=== PATIENT | male | born 1955 | race Caucasian/White ===

== ENCOUNTER 2019-10-22 14:19 | Inpatient (IN) | payer OTHER ==
[2019-10-22] MEDS ORDERED: HYDROmorphone 0.5 MG/0.5 ML Syringe IVPUSH ONE ×4 (14:43→16:13)
[2019-10-22] MEDS ORDERED: Sodium Chloride 0.9% 10 ML Syringe FLUSH PRN (14:43)
--- NOTE | 2019-10-22 14:52 | EDM.PDOC ---
ED HPI GENERAL MEDICAL PROBLEM - General Chief Complaint: Abdominal Pain Stated Complaint: ABD PAIN Time Seen by Provider: 10/22/19 14:40 Source of Information: Reports: Patient History Limitations: Reports: Other (no records immediately available regarding his recent clinic visit) - History of Present Illness INITIAL COMMENTS - FREE TEXT/NARRATIVE: 64 yo male presents with low abdominal pain. Says he was seen on Saturday in the clinic for this and had a CT scan that showed diverticulitis. He was placed on oral Augmentin and no follow up appt was scheduled. He has since had increasing abdominal pain and loose stools. He says he had a fever on Saturday, but not since. No nausea or vomiting. Sx's only slightly worse with coughing. Onset: Gradual Onset Date: 10/19/19 Duration: Day(s):, Getting Worse Location: Reports: Abdomen (low) Quality: Reports: Ache Severity: Severe Improves with: Reports: None Worsens with: Reports: Other (time) Context: Reports: Other (see HPI) Associated Symptoms: Denies: Chest Pain, Cough, Fever/Chills, Nausea/Vomiting, Rash, Seizure, Shortness of Breath, Syncope Treatments SIZE STAMPER: Reports: Other (see below) (Augmentin) Abdomen Pain Score (Numeric/FACES): 10 - Related Data Allergies Allergy/AdvReac Type Severity Reaction Status Date / Time No Known Allergies Allergy Verified 10/22/19 14:54 Home Meds: Home Meds Amoxicillin/Clavulanate K [Augmentin 875-125 MG] 1 cap PO BID 10/22/19 [History] Ofloxacin [Ocuflox 0.3% Oph Soln] 2 drop TOP TID 10/22/19 [History] Omeprazole Magnesium [Prilosec Otc] 20 mg PO DAILY 10/22/19 [History] ED ROS GENERAL - Review of Systems Review Of Systems: See Below Constitutional: Reports: No Symptoms HEENT: Reports: No Symptoms Respiratory: Reports: No Symptoms Cardiovascular: Reports: No Symptoms GI/Abdominal: Reports: Abdominal Pain (lower), Diarrhea. Denies: Anorexia, Black Stool, Bloody Stool, Constipation, Distension, Hematemesis, Hematochezia, Melena, Nausea, Vomiting : Reports: No Symptoms Musculoskeletal: Reports: No Symptoms Skin: Reports: Other (slightly sweaty at times from the pain) Neurological: Reports: No Symptoms ED EXAM, GI/ABD - Physical Exam Exam: See Below Exam Limited By: No Limitations General Appearance: Alert, WD/WN, No Apparent Distress Eyes: Bilateral: Normal Appearance Ears: Normal External Exam, Normal Canal, Hearing Grossly Normal Nose: Normal Inspection, No Blood Throat/Mouth: Normal Inspection, Normal Oropharynx, Normal Voice, No Airway Compromise Head: Atraumatic, Normocephalic Neck: Normal Inspection Respiratory/Chest: No Respiratory Distress, Lungs Clear, Normal Breath Sounds, No Accessory Muscle Use Cardiovascular: Regular Rate, Rhythm, No Edema GI/Abdominal Exam: Normal Bowel Sounds, Soft, No Distention, Tender (entire lower abdomen). No: Distended, Hernia Back Exam: Normal Inspection. No: CVA Tenderness (R), CVA Tenderness (L) Extremities: Normal Inspection, Normal Range of Motion, Non-Tender, No Pedal Edema Neurological: Alert, Oriented, CN II-XII Intact, Normal Cognition, No Motor/ Sensory Deficits Psychiatric: Normal Affect, Normal Mood Skin Exam: Warm, Dry, Intact, Normal Color, No Rash Course - Vital Signs Text/Narrative:: bladder scan [address] Kirby wesley @ 1646h Last Recorded V/S: Last Vital Signs Temp 36.1 C 10/22/19 14:45 Pulse 114 H 10/22/19 17:08 Resp 19 10/22/19 17:08 BP 171/94 H 10/22/19 17:08 Pulse Ox 95 10/22/19 17:08 - Orders/Labs/Meds Orders: Active Orders 24 hr Category Date Time Status Bladder Scan [RC] ASDIRECTED Care 10/22/19 16:03 Active UA W/MICROSCOPIC [URIN] Stat Lab 10/22/19 14:25 Ordered Aztreonam [Azactam] 1 gm Med 10/22/19 17:32 Ordered Sodium Chloride 0.9% [Normal Saline] 50 ml IV ONETIME NS + KCl 20mEq/L [Normal Saline with 20 mEq KCl] 1,000 Med 10/22/19 16:15 Active ml IV ASDIRECTED Piperacillin/Tazobactam [Zosyn] 4.5 gm Med 10/22/19 16:53 Active Sodium Chloride 0.9% [Normal Saline] 100 ml IV ONETIME Sodium Chloride 0.9% [Saline Flush] Med 10/22/19 14:26 Active 10 ml FLUSH ASDIRECTED PRN Sodium Chloride 0.9% [Saline Flush] Med 10/22/19 14:43 Active 10 ml FLUSH ASDIRECTED PRN Saline Lock Insert [OM.PC] Routine Oth 10/22/19 14:26 Ordered Saline Lock Insert [OM.PC] Routine Oth 10/22/19 14:43 Ordered Medication Orders Potassium Chloride/Sodium Chloride (Normal Saline With 20 Meq Kcl) 1,000 mls @ 150 mls/hr IV ASDIRECTED DELMER Last Admin: 10/22/19 16:24 Dose: 150 mls/hr Piperacillin Sod/Tazobactam (Sod 4.5 gm/ Sodium Chloride) 100 mls @ 100 mls/hr IV ONETIME ONE Stop: 10/22/19 17:52 Last Admin: 10/22/19 17:06 Dose: 100 mls/hr Sodium Chloride (Saline Flush) 10 ml FLUSH ASDIRECTED PRN PRN Reason: Keep Vein Open Last Admin: 10/22/19 15:35 Dose: 10 ml Admin: 10/22/19 14:59 Dose: 10 ml Sodium Chloride (Saline Flush) 10 ml FLUSH ASDIRECTED PRN PRN Reason: Keep Vein Open Last Admin: 10/22/19 17:09 Dose: 10 ml Labs: Laboratory Tests 10/22/19 10/22/19 10/22/19 Range/Units 14:30 14:30 16:13 WBC 9.2 (4.5-11.0) K/uL RBC 4.65 (4.30-5.90) M/uL Hgb 14.2 (12.0-15.0) g/dL Hct 43.1 (40.0-54.0) % MCV 93 (80-98) fL MCH 31 (27-31) pg MCHC 33 (32-36) % Plt Count 188 (150-400) K/uL Sodium 137 L (140-148) mmol/L Potassium 3.5 L (3.6-5.2) mmol/L Chloride 100 (100-108) mmol/L Carbon Dioxide 24 (21-32) mmol/L Anion Gap 16.5 H (5.0-14.0) mmol/L BUN 13 (7-18) mg/dL Creatinine 1.2 (0.8-1.3) mg/dL Est Cr Clr Drug Dosing TNP Estimated GFR (MDRD) > 60 (>60) Glucose 119 H (74-106) mg/dL Calcium 8.8 (8.5-10.1) mg/dL Lipase 149 (73-393) U/L Meds: Medications Generic Name Dose Route Start Last Admin Trade Name Lory PRN Reason Stop Dose Admin Potassium Chloride/Sodium Chloride 1,000 mls @ 150 mls/hr 10/22/19 16:15 16:24 Normal Saline With 20 Meq Kcl IV 150 mls/hr ASDIRECTED DELMER Administration Piperacillin Sod/Tazobactam 100 mls @ 100 mls/hr 10/22/19 16:53 10/22/19 17: 06 Sod 4.5 gm/ Sodium Chloride IV 10/22/19 17:52 100 mls/hr ONETIME ONE Administration Sodium Chloride 10 ml 10/22/19 14:26 10/22/19 15:35 Saline Flush FLUSH 10 ml ASDIRECTED PRN Administration Keep Vein Open Sodium Chloride 10 ml 10/22/19 14:43 10/22/19 17:09 Saline Flush FLUSH 10 ml ASDIRECTED PRN Administration Keep Vein Open Discontinued Medications Generic Name Dose Route Start Last Admin Trade Name Lory PRN Reason Stop Dose Admin Hydromorphone HCl 0.5 mg 10/22/19 14:43 10/22/19 14:59 Dilaudid IVPUSH 10/22/19 14:44 0.5 mg ONETIME ONE Administration Hydromorphone HCl 0.5 mg 10/22/19 15:05 10/22/19 15:17 Dilaudid IVPUSH 10/22/19 15:06 0.5 mg ONETIME ONE Administration Hydromorphone HCl 0.5 mg 10/22/19 15:44 10/22/19 15:59 Dilaudid IVPUSH 10/22/19 15:45 0.5 mg ONETIME ONE Administration Hydromorphone HCl 0.5 mg 10/22/19 16:13 10/22/19 16:22 Dilaudid IVPUSH 10/22/19 16:14 0.5 mg ONETIME ONE Administration Sodium Chloride 87 mls @ 3 mls/sec 10/22/19 15:14 10/22/19 15:34 Normal Saline IV 10/22/19 15:15 3 mls/sec ASDIRECTED ONE Administration Iopamidol 150 ml 10/22/19 15:13 10/22/19 15:34 Isovue-300 (61%) IV 150 ml . DIRECTED PRN Administration RADIOLOGY EXAM - Radiology Interpretation Free Text/Narrative:: CT abd/pelvis with IV contrast-diverticulitis with perforation. CT Results Date: 10/22/19 CT Results Time: 16:44 Departure - Departure Time of Disposition: 17:50 Disposition: Admitted As Inpatient 68 Condition: Serious Clinical Impression: Perforation of sigmoid colon due to diverticulitis - Discharge Information *PRESCRIPTION DRUG MONITORING PROGRAM REVIEWED*: No *COPY OF PRESCRIPTION DRUG MONITORING REPORT IN PATIENT WILLIAMS: No Referrals: Mikey Giron MD [Primary Care Provider] - Forms: ED Department Discharge Sepsis Event Note - Focused Exam Vital Signs: Vital Signs Temp Pulse Resp BP Pulse Ox 10/22/19 17:08 114 H 19 171/94 H 95 10/22/19 16:28 97 23 H 168/87 H 92 L 10/22/19 15:50 93 22 H 151/81 H 95 10/22/19 14:45 36.1 C 80 18 151/85 H 97 Date Exam was Performed: 10/22/19 Time Exam was Performed: 17:32 - My Orders Last 24 Hours: My Active Orders 10/22/19 14:25 UA W/MICROSCOPIC [URIN] Stat 10/22/19 14:26 Sodium Chloride 0.9% [Saline Flush] 10 ml FLUSH ASDIRECTED PRN Saline Lock Insert [OM.PC] Routine 10/22/19 14:43 Sodium Chloride 0.9% [Saline Flush] 10 ml FLUSH ASDIRECTED PRN Saline Lock Insert [OM.PC] Routine 10/22/19 16:03 Bladder Scan [RC] ASDIRECTED 10/22/19 16:15 NS + KCl 20mEq/L [Normal Saline with 20 mEq KCl] 1,000 ml IV ASDIRECTED 10/22/19 16:53 Piperacillin/Tazobactam [Zosyn] 4.5 gm Sodium Chloride 0.9% [Normal Saline] 100 ml IV ONETIME 10/22/19 17:32 Aztreonam [Azactam] 1 gm Sodium Chloride 0.9% [Normal Saline] 50 ml IV ONETIME - Assessment/Plan Last 24 Hours: My Active Orders 10/22/19 14:25 UA W/MICROSCOPIC [URIN] Stat 10/22/19 14:26 Sodium Chloride 0.9% [Saline Flush] 10 ml FLUSH ASDIRECTED PRN Saline Lock Insert [OM.PC] Routine 10/22/19 14:43 Sodium Chloride 0.9% [Saline Flush] 10 ml FLUSH ASDIRECTED PRN Saline Lock Insert [OM.PC] Routine 10/22/19 16:03 Bladder Scan [RC] ASDIRECTED 10/22/19 16:15 NS + KCl 20mEq/L [Normal Saline with 20 mEq KCl] 1,000 ml IV ASDIRECTED 10/22/19 16:53 Piperacillin/Tazobactam [Zosyn] 4.5 gm Sodium Chloride 0.9% [Normal Saline] 100 ml IV ONETIME 10/22/19 17:32 Aztreonam [Azactam] 1 gm Sodium Chloride 0.9% [Normal Saline] 50 ml IV ONETIME
[2019-10-22] MEDS: Sodium Chloride 0.9% 10 ML Syringe FLUSH PRN ×2 (14:59→15:35)
[2019-10-22] MEDS ORDERED: Iopamidol 612 MG/ML 150 ML Bottle IV PRN (15:13)
[2019-10-22] MEDS ORDERED: Sodium Chloride 0.9% 87 ML IV ONE (15:14)
[2019-10-22] MEDS ORDERED: NS + KCl 20mEq/L 1,000 ML IV SCH (16:15)
--- NOTE | 2019-10-22 16:50 | CRLCT ---
Indication: Diverticulitis, increased abdominal pain Technique: Contrast enhanced axial CT imaging through the abdomen and pelvis. 150 mL Isovue 300 contrast agent was administered intravenously. Sagittal and coronal reconstructions are provided. Comparison: CT abdomen pelvis with contrast 10/20/2019 Findings: Again demonstrated is wall thickening and surrounding inflammatory stranding involving the sigmoid colon with underlying diverticulosis, consistent with the diagnosis of acute diverticulitis. There is interval development of a few foci of pericolonic extraluminal air as well as small amount of pneumoperitoneum, consistent with colonic perforation. There is no organized abdominal or pelvic fluid collection to suggest abscess formation. There is new wall thickening of the terminal ileum and appendix, which are favored to be secondary to worsening inflammatory changes from adjacent diverticulitis. Remainder of the bowel is unremarkable. A small amount free fluid is noted in the lower abdomen pelvis. There is no significant abnormality of the liver, gallbladder, spleen, pancreas, adrenal glands, and kidneys. A small renal cortical cyst is noted on the left. The portal vein and IVC are patent. There is normal caliber of the abdominal aorta. The visualized osseous structures are unremarkable. The included lung bases are clear. Impression: 1. Persistent findings of acute diverticulitis with evidence of an interval colonic perforation. No evidence of abdominal or pelvic abscess. Findings were communicated to Dr. Baron at 4:42 p.m. 2. New wall thickening of the terminal ileum and appendix, favored to be secondary to worsening adjacent inflammatory changes from acute diverticulitis. Please note that all CT scans at this facility use dose modulation, iterative reconstruction, and/or weight-based dosing when appropriate to reduce radiation dose to as low as reasonably achievable. Dictated by Harjit Dillard MD @ Oct 22 2019 4:47PM Signed by Dr. Harjit Dillard @ Oct 22 2019 4:47PM
[2019-10-22] MEDS ORDERED: Piperacillin/Tazobactam 4.5 GM in Sodium Chloride 0.9% 100 ML IV ONE (16:53)
[2019-10-22] MEDS ORDERED: HYDROmorphone 1 MG/ML Syringe IVPUSH ONE (17:47)
[2019-10-22] MEDS ORDERED: Acetaminophen 650 MG Supp RECTAL ONE (18:05)
[2019-10-22] MEDS ORDERED: Bupivacaine 0.5% 50 ML MDV ONE (18:07)
[2019-10-22] MEDS ORDERED: Lidocaine 1% with EPINEPHrine 1:100,000 50 ML MDV ONE (18:07)
[2019-10-22] MEDS ORDERED: Meropenem 500 MG SDV ONE ×4 (18:07→19:42)
[2019-10-22] MEDS ORDERED: Propofol 200 MG/20 ML SDV ONE (18:14)
[2019-10-22] MEDS ORDERED: Glycopyrrolate 0.2 MG/ML 5 ML MDV ONE (18:14)
[2019-10-22] MEDS ORDERED: Succinylcholine 200 MG/10 ML MDV ONE (18:14)
[2019-10-22] MEDS ORDERED: Dexamethasone 4 MG/ML SDV ONE (18:14)
[2019-10-22] MEDS ORDERED: Ondansetron 4 MG/2 ML SDV ONE (18:14)
[2019-10-22] MEDS ORDERED: fentaNYL 250 MCG/5 ML SDV ONE ×3 (18:14→20:23)
[2019-10-22] MEDS ORDERED: Neostigmine Methylsulfate 1 MG/ML 5 ML Syringe ONE (18:14)
[2019-10-22] MEDS ORDERED: Midazolam 1 MG/ML 2 ML SDV ONE (18:14)
[2019-10-22] MEDS ORDERED: Rocuronium 50 MG/5 ML Vial ONE ×2 (18:14→20:39)
[2019-10-22] MEDS ORDERED: Lactated Ringers 1,000 ML ONE ×2 (19:11→20:24)
[2019-10-22] MEDS ORDERED: Ketamine 500 MG/5 ML MDV ONE (19:31)
[2019-10-22] MEDS ORDERED: HYDROmorphone/Normal Saline 15 MG/30 ML PCA IV ONE (21:55)
[2019-10-22] MEDS ORDERED: hydrOXYzine HCL 100 MG/2 ML SDV IM PRN (22:02)
[2019-10-22] MEDS ORDERED: Ondansetron 4 MG/2 ML SDV IVPUSH PRN (22:13)
[2019-10-22] MEDS ORDERED: Cyclobenzaprine 10 MG Tab PO PRN (22:14)
[2019-10-22] MEDS ORDERED: Naloxone 0.4 MG/ML SDV IV PRN (22:17)
[2019-10-22] MEDS ORDERED: Pantoprazole 40 MG Vial IV ONE (22:30)
[2019-10-22] MEDS ORDERED: Metoclopramide 10 MG/2 ML SDV IVPUSH ONE (23:00)
[2019-10-22] MEDS: Meropenem 500 MG in Sodium Chloride 0.9% 50 ML IV SCH (23:35)
[2019-10-23] MEDS: Dextrose 5%-Lactated Ringers 1,000 ML IV PRN ×3 (03:55→21:59)
[2019-10-23] MEDS: Meropenem 500 MG in Sodium Chloride 0.9% 50 ML IV SCH ×3 (04:59→17:38)
[2019-10-23] MEDS: Metoclopramide 10 MG/2 ML SDV IVPUSH SCH ×3 (04:59→17:38)
[2019-10-23] MEDS: HYDROmorphone/Normal Saline 15 MG/30 ML PCA IV PRN ×2 (07:13→16:24)
[2019-10-23] MEDS ORDERED: Meropenem 500 MG SDV ONE ×2 (07:41→13:51)
[2019-10-23] MEDS ORDERED: fentaNYL 250 MCG/5 ML SDV ONE ×2 (09:38→13:52)
[2019-10-23] MEDS ORDERED: Dexamethasone 4 MG/ML SDV ONE (09:39)
[2019-10-23] MEDS ORDERED: Rocuronium 50 MG/5 ML Vial ONE (09:39)
[2019-10-23] MEDS ORDERED: Ondansetron 4 MG/2 ML SDV ONE (09:39)
[2019-10-23] MEDS ORDERED: Propofol 200 MG/20 ML SDV ONE (09:39)
[2019-10-23] MEDS ORDERED: Succinylcholine 200 MG/10 ML MDV ONE (09:39)
[2019-10-23] MEDS ORDERED: Glycopyrrolate 0.2 MG/ML 5 ML MDV ONE (09:39)
[2019-10-23] MEDS ORDERED: Neostigmine Methylsulfate 1 MG/ML 5 ML Syringe ONE (09:39)
[2019-10-23] MEDS ORDERED: Ketamine 50 MG in Sodium Chloride 0.9% 49.5 ML IV SCH (12:30)
[2019-10-23] MEDS ORDERED: Ketamine 500 MG/5 ML MDV IV SCH (12:30)
[2019-10-23] MEDS ORDERED: Lactated Ringers 1,000 ML ONE (13:45)
[2019-10-23] MEDS ORDERED: Sodium Chloride 0.9% 10 ML ONE (13:51)
[2019-10-23] MEDS: Enoxaparin 40 MG/0.4 ML Syringe SUBCUT SCH (16:24)
[2019-10-23] MEDS: Pantoprazole 40 MG Vial IV SCH (20:51)
[2019-10-24] MEDS: Metoclopramide 10 MG/2 ML SDV IVPUSH SCH ×5 (00:35→22:38)
[2019-10-24] MEDS: Meropenem 500 MG in Sodium Chloride 0.9% 50 ML IV SCH ×5 (00:36→23:53)
[2019-10-24] MEDS: Dextrose 5%-Lactated Ringers 1,000 ML IV PRN (04:07)
[2019-10-24] MEDS: Enoxaparin 40 MG/0.4 ML Syringe SUBCUT SCH (10:27)
[2019-10-24] MEDS: Potassium Phos in 0.9 % NaCl 15 MMOL in Premix Bag 1 BAG IV SCH ×10 (12:11→20:28)
[2019-10-24] MEDS: Dextrose 5%-Lactated Ringers 1,000 ML IV SCH (20:28)
[2019-10-24] MEDS: Pantoprazole 40 MG Vial IV SCH (20:34)
[2019-10-25] MEDS: HYDROmorphone/Normal Saline 15 MG/30 ML PCA IV PRN (02:55)
[2019-10-25] MEDS: Meropenem 500 MG in Sodium Chloride 0.9% 50 ML IV SCH ×4 (05:16→23:44)
[2019-10-25] MEDS: Metoclopramide 10 MG/2 ML SDV IVPUSH SCH ×4 (05:16→22:13)
[2019-10-25] MEDS: Dextrose 5%-Lactated Ringers 1,000 ML IV SCH ×2 (05:19→20:06)
[2019-10-25] MEDS ORDERED: Lidocaine 1% with EPINEPHrine 1:100,000 50 ML MDV ONE (06:46)
[2019-10-25] MEDS ORDERED: Meropenem 500 MG SDV ONE (06:46)
[2019-10-25] MEDS ORDERED: Bupivacaine 0.5% 50 ML MDV ONE (06:46)
[2019-10-25] MEDS ORDERED: Propofol 200 MG/20 ML SDV ONE ×2 (07:19→08:30)
[2019-10-25] MEDS ORDERED: fentaNYL 100 MCG/2 ML SDV ONE (07:19)
[2019-10-25] MEDS ORDERED: Lidocaine 1% 2 ML ONE (07:43)
[2019-10-25] MEDS: Enoxaparin 40 MG/0.4 ML Syringe SUBCUT SCH (10:51)
[2019-10-25] MEDS: Potassium Phos in 0.9 % NaCl 15 MMOL in Premix Bag 1 BAG IV SCH ×4 (11:18→14:51)
--- NOTE | 2019-10-25 12:54 | PN ---
DATE OF SERVICE: 10/25/2019 The patient's T-max is 99.4. Vital signs have, otherwise, been stable. O2 saturations on 1 L nasal cannula are in the low to mid 90s. NG output is still fairly high at around 900 mL and fairly dark, so we will leave that in place today. Otherwise, renal output remains good. Garrido catheter will be removed along the DANNY drains at the time of the delayed primary closure, which will be undertaken later on this morning. The patient's cultures were growing E. coli plus an anaerobe which should be adequately covered by the Azactam and meropenem with E. coli being sensitive to both, and meropenem would cover the anaerobe satisfactorily. No flatus or bowel movement as of yet. After closure, we will maximize activity and work with pulmonary toilet and await return of GI function. Federico Orr MD /[id number]
--- NOTE | 2019-10-25 12:54 | PN ---
DATE OF SERVICE: 10/23/2019 The patient has been clinically stable overnight, still having further discomfort that appears to be at this point reasonably well controlled. Vital signs have been stable, urine output adequate. The creatinine did bump up from 1.2 preoperatively to 1.5. We will continue present antibiotics and continue to work with pulmonary toilet. NG tube we will leave in place for today. We will empirically do a second-look laparotomy abdominal washout today, and if he is stable through the day, we will plan to go to 2nd floor after that closure which will be sometime around noon or so. Federico Orr MD /[id number]
--- NOTE | 2019-10-25 14:39 | PN ---
CORRECTED REPORT DATE OF SERVICE: 10/24/2019 The patient has been afebrile with stable vital signs. Renal output has now picked up very well. With that, he is being backed down on the IV rate. Phosphate is somewhat low. We will supplement with some potassium phosphate today. Otherwise, maximize activity, work with pulmonary toilet. Intraoperative cultures are still pending, and we will continue the present antibiotics. Plan to proceed with a delayed primary closure of abdominal incision tomorrow. Federico Orr MD /[id number]
--- NOTE | 2019-10-25 14:51 | OR ---
DATE OF PROCEDURE: 10/25/2019 SURGEON: Federico Orr MD PREOPERATIVE DIAGNOSIS: Open abdominal incision. POSTOPERATIVE DIAGNOSIS: Open abdominal incision. OPERATIVE PROCEDURE: Delayed primary closure of open abdominal incision. ANESTHESIA: Local plus IV sedation. DETAILS OF PROCEDURE: The patient was taken to the operating room and placed in a supine position staying somewhat upright to limit aspiration risk. After the operative dressings were taken down, the wound was inspected and found to be clean. Wound was then prepped and draped, anesthetized with 1% lidocaine mixed with Marcaine. Bilateral transversus abdominis plane blocks were placed using ultrasound guidance, and the incision was then irrigated with a meropenem-containing saline solution. Incision was then closed with 2 layers of 3-0 and 4- 0 Vicryl stitch deep and then sharron for the skin. Dressing was applied. I did replace his DANNY drains and Garrido catheter removed at end of the procedure as well. The patient was taken to the recovery room in satisfactory condition. Federico Orr MD /[id number]
[2019-10-25] MEDS: Pantoprazole 40 MG Vial IV SCH (20:07)
[2019-10-26] MEDS: Metoclopramide 10 MG/2 ML SDV IVPUSH SCH ×4 (05:41→22:05)
[2019-10-26] MEDS: Meropenem 500 MG in Sodium Chloride 0.9% 50 ML IV SCH ×3 (05:43→17:23)
[2019-10-26] MEDS: Bisacodyl 5 MG Tab PO SCH ×2 (08:11→21:50)
[2019-10-26] MEDS: Docusate Sodium 100 MG Cap PO SCH ×2 (08:11→21:50)
[2019-10-26] MEDS: Enoxaparin 40 MG/0.4 ML Syringe SUBCUT SCH (08:13)
--- NOTE | 2019-10-26 11:19 | PN ---
DATE OF SERVICE: 10/26/2019 SUBJECTIVE: Juvencio states his pain is controlled. He has been afebrile. Oral intake, ice chips at 240. He has had 300 out of his NG. He does state he has not passed flatus, but he feels some bowel action. REVIEW OF SYSTEMS: Remainder of review of systems negative for any pertinent positives and negatives. OBJECTIVE: GENERAL: Juvencio Lopez is a 64-year-old male. He is alert and orientated. VITAL SIGNS: TPR from 0219, 98.8, 50, 16, blood pressure 137/68, O2 is 94%. HEENT: Negative. NECK: Supple. HEART: Regular rate and rhythm. LUNGS: Clear. ABDOMEN: Dressings dry and intact. Abdominal binder is on. EXTREMITIES: Without peripheral edema. ASSESSMENT: 1. Delayed primary closure on 10/25/2019. 2. Second-look laparotomy with: a. Drainage of focal fluid collection/abscess in small bowel interloop area. b. Mobilization of omentum into pelvis for SP pelvic abscess, diffuse peritonitis with focal inflammatory fluid collection and abscess in interloop areas of the bowel. Date of surgery: 10/23/2019. Surgeon: Federico Orr MD. c. Exploratory laparotomy with rectosigmoid resection with coloproctostomy. d. Small bowel resection. e. Appendectomy. f. Drainage of pericolonic abscess for perforated sigmoid colon diverticulitis and pericolonic abscess, diffuse peritonitis, severe inflammation, subfocal necrosis segment of small bowel, and appendix involving abscess. Date of surgery: 10/22/2019. Surgeon: Federico Orr MD. PLAN: 1. Discontinue NG. 2. Colace 100 mg b.i.d. 3. Dulcolax 10 mg b.i.d., to stop when the patient starts having bowel movements. 4. May shower. 5. Good pulmonary toilet. 6. We will evaluate p.r.n. or in a.m. Shannen Beverly PA-C /[id number]
[2019-10-26] MEDS: Dextrose 5%-Lactated Ringers 1,000 ML IV SCH (21:47)
[2019-10-26] MEDS: Pantoprazole 40 MG Vial IV SCH (21:50)
[2019-10-27] MEDS: HYDROmorphone/Normal Saline 15 MG/30 ML PCA IV PRN (00:17)
[2019-10-27] MEDS: Meropenem 500 MG in Sodium Chloride 0.9% 50 ML IV SCH ×5 (00:20→23:44)
[2019-10-27] MEDS: Metoclopramide 10 MG/2 ML SDV IVPUSH SCH ×4 (05:25→22:21)
[2019-10-27] MEDS: Bisacodyl 5 MG Tab PO SCH ×2 (08:35→10:17)
[2019-10-27] MEDS: Docusate Sodium 100 MG Cap PO SCH ×3 (08:36→20:13)
[2019-10-27] MEDS: Enoxaparin 40 MG/0.4 ML Syringe SUBCUT SCH (08:36)
[2019-10-27] MEDS ORDERED: Acetaminophen/oxyCODONE 325-5 MG Tab PO PRN (09:19)
[2019-10-27] MEDS: Ibuprofen 600 MG Tab PO SCH ×3 (10:09→22:21)
[2019-10-27] MEDS: Lactobacillus Rhamnosus GG (Probiotic) Cap PO SCH ×2 (10:35→20:11)
[2019-10-27] MEDS ORDERED: Pantoprazole 40 MG Tab.CR PO SCH (21:00)
[2019-10-27] MEDS: Dextrose 5%-Lactated Ringers 1,000 ML IV SCH (22:25)
[2019-10-28] MEDS: Ibuprofen 600 MG Tab PO SCH ×2 (04:57→09:10)
[2019-10-28] MEDS: Metoclopramide 10 MG/2 ML SDV IVPUSH SCH (04:58)
[2019-10-28] MEDS: Meropenem 500 MG in Sodium Chloride 0.9% 50 ML IV SCH (05:03)
[2019-10-28] MEDS: Docusate Sodium 100 MG Cap PO SCH (09:05)
[2019-10-28] MEDS: Lactobacillus Rhamnosus GG (Probiotic) Cap PO SCH (09:05)
[2019-10-28] MEDS: Enoxaparin 40 MG/0.4 ML Syringe SUBCUT SCH (09:08)
--- NOTE | 2019-10-28 15:45 | PN ---
DATE OF SERVICE: 10/27/2019 The patient has been afebrile with stable vital signs. He did move his bowels. We will begin a full liquid diet and advance to a regular diet. Switch him to oral pain medication. He may be ready for discharge home tomorrow. Federico Orr MD /[id number]
--- NOTE | 2019-10-29 05:19 | DISCH ---
ADMISSION DIAGNOSES: 1. Lower abdominal pain. 2. Diverticulitis. DISCHARGE DIAGNOSES: 1. Drainage of pericolonic abscess for perforated sigmoid colon diverticulitis and pericolonic abscess. Diffuse peritonitis, severe inflammation, sub focal necrosis, segment of small bowel and appendix involving abscess. Date of surgery, 10/22/2019. Surgeon, Federico Orr MD. 2. Second-look laparotomy with: a. Drainage of focal fluid collection, abscess of small bowel inter-loop area. b. Mobilization of the omentum into pelvis pelvic abscess, diffuse peritonitis with local inflammatory fluid collection and abscess in inter-loop areas of the small bowel. Date of surgery: 10/23/2019. Surgeon: Federico Orr MD. 3. Delayed primary closure, 10/25/2019. Federico Orr MD. HISTORY: Juvencio Lopez is a 64-year-old male who presented to the emergency room on 10/22/2019 for abdominal pain. After preoperative evaluation and discussion of possible risks and possible complications, he wished to proceed with surgical procedure. HOSPITAL COURSE: Juvencio had the above surgical procedures. He had no operative complications. He was started on bowel stimulation after his delayed primary closure on 10/25/2019. He started having bowel movements. His diet was advanced to a soft solid diet. ASSET PROTECTION ASSISTANT was discontinued and he was started on oral pain medication. His activity was good. Vital signs were stable. Oral intake adequate. He had 3 bowel movements. He was able to be discharged to home. PHYSICAL EXAMINATION: GENERAL: Juvencio Lopez is a 64-year-old male. VITAL SIGNS: Height is 6 feet, weight 229 pounds. TPR 97.8, 64, 16. Blood pressure is 146/99. HEENT: Negative. NECK: Supple. HEART: Regular rate and rhythm. LUNGS: Clear. ABDOMEN: Aquacel dressing is on. It is dry and intact. EXTREMITIES: Without peripheral edema. NEUROLOGIC: Intact. SKIN: Without rash. DISPOSITION: Discharged to home. CONDITION: Stable and improving. FOLLOWUP APPOINTMENT: With Federico Orr MD, on 11/04/2019 at 9 a.m. HOME MEDICATIONS: 1. Colace 100 mg b.i.d. 2. Motrin 600 mg every 6 hours p.r.n. pain. 3. Ofloxacin 0.3% ophthalmic solution 2 drops topical 3 times a day. 4. Omeprazole 20 mg oral daily. He is to discontinue taking the Augmentin. DIET: GI, soft, low residue, low-fiber diet. Drink 8 to 10 glasses of water a day. Driving after discharge: Do not drive for 1 week and while on pain medication. Shower/bathing: May shower. DISCHARGE INSTRUCTIONS: Notify provider if any fever, increased pain, nausea, vomiting. Keep site clean and dry. Wear abdominal binder for 6 weeks and then as desired. Take off Aquacel dressing on 10/31/2019 and use incentive spirometer 10 times every hour while awake for 1 week.
--- NOTE | 2019-10-31 22:03 | OR ---
DATE OF PROCEDURE: 10/22/2019 SURGEON: Federico Orr MD PREOPERATIVE DIAGNOSES: Perforated sigmoid colon diverticulitis with free intraperitoneal air. POSTOPERATIVE DIAGNOSES: 1. Perforated sigmoid colon diverticulitis with pericolonic abscess and diffuse peritonitis. 2. Severe inflammation and superficial necrosis of a segment of small bowel and appendix sharing abscess wall. OPERATIVE PROCEDURES: Exploratory laparotomy with: 1. Rectosigmoid resection with coloproctostomy (31268). 2. Small bowel resection (14786). 3. Appendectomy (73589). 4. Drainage of pericolonic abscess (81419). ANESTHESIA: General. INDICATIONS FOR PROCEDURE: This is a 64-year-old male who was seen yesterday in walk-in clinic with apparent sigmoid colon diverticulitis. He was treated initially with oral antibiotics, presented to the emergency room this afternoon with severe pain, and CT scan showed free intraperitoneal air along with the obvious sigmoid colon diverticulitis. The patient received preoperative antibiotics and hydration, and plan will be to proceed with an exploratory laparotomy with sigmoid resection with or without colostomy depending on operative findings. Potential risks of the procedure were reviewed with the patient and his including bleeding; infection; injury to underlying viscera; leaks from the GI tract closures of the primary anastomosis undertaken as well as the possibility of cardiopulmonary, septic, or hemorrhagic complications leading to was discussed, and the patient wishes to proceed. DETAILS OF PROCEDURE: The patient was taken to the operating room, and after general endotracheal anesthesia was induced, he was placed in a lithotomy position. Garrido catheter was inserted, and the abdomen was prepped and draped. A midline incision which eventually extended from roughly a handsbreadth above the umbilicus to the pubis was made and carried down through the full-thickness of abdominal wall. Upon entering the peritoneal cavity, the patient was noted to have diffuse purulence. This extended up and included some GI tract type content, i.e., greenish purulence to the level of the diaphragms on both sides and involved multiple areas in loop collections as well. Initial observation confirmed a diverticulitis. The abscess cavity which was more well-defined was located on the right side of the sigmoid colon and contained the appendix and a loop of small bowel on the abscess wall, both of which appeared to have severe inflammation and probably some superficial necrosis. The well-defined abscess cavity in the pelvis was drained, and cultures were obtained. Packing was initially placed into the pelvis to limit additional spread of any contamination, and several liters of meropenem-containing saline solution were then used to irrigate the abdomen until those areas returned fairly clear. Attention was then taken to the pelvis. Initially, the involved left sigmoid colon was divided at a point more or less centered in the pelvis. At that level, the colon was quite soft. This then allowed mobilization of the more distal sigmoid colon up out of the pelvis with division of the peritoneum on each side of the pelvis and upper rectum. Once this was mobilized upward, a soft area in the rectum was identified. This was encircled and divided with a CAITLIN black load. The more proximal bowel had also been divided with a straight black load. Underlying mesentery was then divided with mesenteric CAITLIN loads, and the specimen delivered from the field. At this point, the pelvis had been irrigated extensively with meropenem-containing saline solution, and was fairly clear at this point, and both ends of the anastomosis appeared to be satisfactory for primary anastomosis. Given this, the anvil of a 28 mm EEA stapler was placed through a small opening, and the divided end of the proximal sigmoid colon was then re-stapled with a purple load bringing the anvil spike out through the staple line. Main body of the stapler was then brought up into the rectum. This could not be brought out to the very end of the divided rectum, and some additional rectum was then excised with a CAITLIN black load. This then allowed the stapler to be brought out through the area adjacent to the staple line and united with the anvil and fired and thus creating the coloproctostomy. The anastomosis at this point was well too low in what otherwise was a quite narrow male pelvis to provide any supplemental seromuscular suturing. With the sigmoid colon being compressed, colonoscope was then passed into the rectum and up to the level of the anastomosis while the pelvis was being flooded with antibiotic-containing saline solution. The anastomosis appeared to be intact with good blood supply on both sides, and no bubbles were seen with air insufflation. Attention was then taken to the appendix. Mesoappendix and the appendix at the junction of the cecum were then both divided with CAITLIN loads, and that specimen delivered from the field. The cecal staple line was reinforced with [id number] stitch of 3-0 Vicryl stitch. The affected area of small bowel was then divided proximally and distal to the area of concern with CAITLIN sharron as was the underlying mesentery. GI tract continuity was then reestablished with a [id number] enteroenterostomy with initially an internal firing of the Endo-CAITLIN 60 mm stapler followed by 45 mm internal firing, and the common opening then closed transversely with a CAITLIN stapler as well. The angles of the anastomoses and mesenteric defect were reinforced with some 3-0 Vicryl stitch. At this point, the abdomen was once again irrigated with several liters of meropenem- containing saline solution, and 2 Jose-Rodriguez drains were placed, 1 placed along the area of the right pericolic gutter and into the pelvis and the other on the left side down towards the pelvis. The midline fascia was then approximated with #2 Vicryl stitch. Skin and subcutaneous tissue were left open. We will plan to proceed with a second-look operation tomorrow given the extent of contamination to rule out any remaining areas of recurrent inflammatory fluid collections. The patient remained hemodynamically stable through the procedure and was taken to the recovery room in satisfactory condition. Federico Orr MD /[id number]
--- NOTE | 2019-11-02 11:02 | OR ---
DATE OF PROCEDURE: 10/23/2019 SURGEON: Federico Orr MD PREOPERATIVE DIAGNOSES: Status post sigmoid resection for perforated sigmoid colon with pelvic abscess and diffuse peritonitis. POSTOPERATIVE DIAGNOSES: 1. Status post sigmoid resection for perforated sigmoid colon with pelvic abscess and diffuse peritonitis. 2. Focal inflammatory fluid collection/abscess in the small bowel interloop area. OPERATIVE PROCEDURES: Second-look laparotomy (16539) with, 1. Drainage of focal inflammatory fluid collection/abscess in small bowel interloop area (31581). 2. Mobilization in the pelvis to displace pelvic and abdominal cassidy from underlying viscera (37404). ANESTHESIA: General. CLEANER AND TRIMMER: Shannen Beverly PA-C INDICATION FOR PROCEDURE: This is a 64-year-old who is 24 hours status post laparotomy for perforated sigmoid colon diverticulitis with pelvic abscess and diffuse peritonitis being noted. He is to have a second-look laparotomy to rule out any recurrent areas of purulent or contaminated fluid. Potential risks including bleeding, infection, injury to underlying viscera, as well as possible recurrent infection were all reviewed, and the patient wishes to proceed. DETAILS OF PROCEDURE: The patient was taken to the operating room and placed in a supine position. After general endotracheal anesthesia was induced, the previously packed open incision was inspected, and the abdomen was prepped and draped. The fascia was then opened after division of the fascial sutures and gentle exploration was undertaken, and the findings were generally quite clean. There was a cloudy area of inflammatory fluid within the interloop area of the small bowel. This would be consistent with a smoldering area of inflammatory fluid collection or abscess and cultures of this were obtained, and the area evacuated. The abdomen was then irrigated with several liters of meropenem-containing saline solution and then with zosyn-containing fluid. At that point, no further problems were noted. The omentum was then mobilized into the pelvis to displace the small bowel from the pelvic and abdominal wall surfaces, and the midline fascia was then once again approximated with #2 Vicryl stitch. Skin and subcutaneous tissue were once again packed open for a planned delayed primary closure in 48 hours. The patient was taken to the recovery room in satisfactory condition. Physician assistant professor of art, Shannen Beverly, played an essential role in assisting in this case, helping to position the patient, retracting structures as needed, as well as suturing and cutting sutures when indicated. Her presence improved patient safety and decreased the operative time. Federico Orr MD /[id number]
== END 2019-10-28 09:49 | disposition home or self-care (01) | DRG 329 ==
LOC: JP.ED 14:19 → JP.SDS 18:03 → JP.ICU 22:15 → JP.MS 10-23 15:04
PROVIDERS: ADMIT Surgery; ATTEND Surgery
PROC: 0DBN0ZZ Excision of Sigmoid Colon, Open Approach (ICD-10-PCS; principal; 2019-10-22)
PROC: 0DBP0ZZ Excision of Rectum, Open Approach (ICD-10-PCS; 2019-10-22)
PROC: 0DB80ZZ Excision of Small Intestine, Open Approach (ICD-10-PCS; 2019-10-22)
PROC: 0DTJ0ZZ Resection of Appendix, Open Approach (ICD-10-PCS; 2019-10-22)
PROC: 0W9G00Z Drainage of Peritoneal Cavity with Drainage Device, Open Approach (ICD-10-PCS; 2019-10-22)
PROC: 0WQF0ZZ Repair Abdominal Wall, Open Approach (ICD-10-PCS; 2019-10-25)
DX: K57.20 Diverticulitis of large intestine with perforation and abscess without bleeding (principal); K55.021 Focal (segmental) acute infarction of small intestine; Z79.899 Other long term (current) drug therapy
CPT/HCPCS: 36415; 51798; 74177; 80048; 80053; 83605; 83615; 83690; 83735; 83880; 84100; 85027; 87070; 87075; 87077; 87186; 87205; 88304; 88307; 94762; 96365; 96366; 96368; 96375; 96376; 99285-25; A9270-GY; C9113; J0131; J0171; J0330; J1100; J1170; J1650; J2001; J2185; J2250; J2405; J2543; J2704; J2710; J2765; J2795; J3010; J3480; J3490; J7050; J7120; J7121; Q9967